=== PATIENT | male | born 1955 | race Caucasian/White ===

== ENCOUNTER 2020-06-09 20:00 | Inpatient (IN) | payer BC, OTHER ==
[~2020-06-09] VITALS: Ht 160 cm; Wt 77.8 kg
--- NOTE | 2020-06-09 20:15 | NUR ---
PT BIB EMS FROM [facility]. PT WAS DIAGNOSED WITH COVID AND OVER THE PAST 3 DAYS WAS GETTING DECADRON 10MG ONCE A DAY AT [facility]. TODAY PER EMS "THEY CALLED 911 BECAUSE HE WAS "DECLINING"" WHEN EMS ARRIVED HE WAS ON 6 LITERS SIMPLE MASK AND HIS 02 SAT WAS 80%. EMS PLACED HIM ON BIPAP AT 80%FIO2 AND 5 PEEP. PT ARRIVED TO ER AND IS BEING PLACED ON OPTIFLOW. EKG COMPLETE. PT CONNECTED TO MONITORING EQUIPMENT. LAW ENFORCEMENT IS BEDSIDE. WILL CONTINUE TO MONITOR
[2020-06-09 20:37] LABS: BASOPHILS % (AUTO) 0 % (0-1); EOSINOPHILS % (AUTO) 0 % (1-7); LYMPHOCYTES % (AUTO) 1 % (22-44); MEAN CORPUSCULAR HGB CONC 34.7 g/dL (33.2-36.2); MEAN PLATELET VOLUME 7.8 fL (7.4-10.4); MONOCYTES % (AUTO) 4 % (2-9); NEUTROPHILS % (AUTO) 95 % (42-75); PLATELET COUNT 253 x10^3/uL (130-400); RED BLOOD COUNT 5.22 x10^6/uL (4.38-5.82); RED CELL DISTRIBUTION WIDTH 13.6 % (9.4-14.8)
--- NOTE | 2020-06-09 20:38 | NUR ---
PT FAILED OPTIFLOW TRIAL. PT 02 SAT DROPPED TO 70s. PT PLACED BACK ON BIPAP AT 60% FLOW AT 12/8
[2020-06-09 20:40] LABS: MD NO
[2020-06-09 20:46] LABS: ALANINE AMINOTRANSFERASE 44 U/L (12-78); ALBUMIN 2.9 g/dL (3.4-5.0); ANION GAP 10 mmol/L (5-15); CALCIUM 8.3 mg/dL (8.5-10.1); CHLORIDE 102 mmol/L (98-107); CREATININE 0.86 mg/dL (0.7-1.3)
[2020-06-09 20:53] LABS: ALKALINE PHOSPHATASE 51 U/L (45-117); BILIRUBIN,TOTAL 0.9 mg/dL (0.2-1.0); TOTAL PROTEIN 7.2 g/dL (6.4-8.2)
[2020-06-09 20:54] LABS: D-DIMER (DIC) 1.07 ug/mlFEU (0.00-0.52); PROTIME 11.1 Seconds (9.6-11.5)
[2020-06-09] MEDS ORDERED: CEFTRIAXONE PMX 1GM/50ML 50 ML ONE (21:16)
[2020-06-09] MEDS ORDERED: CEFTRIAXONE PMX 1GM/50ML 50 ML IVPB ONE (21:30)
[2020-06-09] MEDS ORDERED: AZITHROMYCIN 500 MG in SODIUM CHLORIDE 0.9% 250 ML IVPB ONE (21:30)
--- NOTE | 2020-06-09 22:12 | NUR ---
PT RESTING IN GURNEY. WATCHING TV. TOELRATING BIPAP WELL.
[2020-06-09] MEDS: CEFTRIAXONE PMX 1GM/50ML 50 ML IV SCH (22:14)
[2020-06-09] MEDS: AZITHROMYCIN 500 MG in SODIUM CHLORIDE 0.9% 250 ML IV SCH (22:14)
[2020-06-09] MEDS ORDERED: PROMETHAZINE 25 MG/ML, 1ML IM PRN (22:30)
[2020-06-09] MEDS ORDERED: morphine SULFATE 10 MG/ML, 1ML IVPush PRN (22:30)
[2020-06-09] MEDS ORDERED: LORazepam 2 MG/ML, 1ML IVPush ONE (22:30)
[2020-06-09] MEDS ORDERED: THIAMINE 100MG TABLET ONE (22:32)
[2020-06-09] MEDS ORDERED: ENOXAPARIN 60 MG/0.6 ML ONE (22:32)
[2020-06-09] MEDS ORDERED: MELATONIN 5 MG TABLET ONE (22:32)
[2020-06-09] MEDS ORDERED: LORazepam 2 MG/ML, 1ML ONE (22:33)
[2020-06-09] MEDS: THIAMINE 100MG TABLET PO SCH (22:41)
[2020-06-09] MEDS: MELATONIN 5 MG TABLET PO SCH (22:41)
--- NOTE | 2020-06-09 22:42 | NUR ---
PT MEDICATED PER MAR
[2020-06-09] MEDS ORDERED: ENOXAPARIN 60 MG/0.6 ML SQ SCH (23:30)
[2020-06-10] MEDS: INSULIN GLARGINE 100 UNITS/ML, PEN SQ-INSULIN SCH ×3 (00:52→20:20)
[2020-06-10 04:25] LABS: BASOPHILS % (AUTO) 0 % (0-1); EOSINOPHILS % (AUTO) 0 % (1-7); LYMPHOCYTES % (AUTO) 2 % (22-44); MEAN CORPUSCULAR HGB CONC 36.3 g/dL (33.2-36.2); MEAN PLATELET VOLUME 7.8 fL (7.4-10.4); MONOCYTES % (AUTO) 5 % (2-9); NEUTROPHILS % (AUTO) 93 % (42-75); PLATELET COUNT 219 x10^3/uL (130-400); RED BLOOD COUNT 4.75 x10^6/uL (4.38-5.82); RED CELL DISTRIBUTION WIDTH 13.3 % (9.4-14.8)
[2020-06-10 04:36] LABS: MD NO
[2020-06-10 04:38] LABS: CHLORIDE 104 mmol/L (98-107)
[2020-06-10 05:03] LABS: ANION GAP 8 mmol/L (5-15); CREATININE 0.78 mg/dL (0.7-1.3)
[2020-06-10] MEDS ORDERED: PANTOPRAZOLE 40MG TABLET PO SCH (07:30)
[2020-06-10] MEDS: INSULIN LISPRO 100 UNITS/ML, PEN SQ-INSULIN SCH ×4 (08:13→20:20)
[2020-06-10] MEDS: CHOLECALCIFEROL 5,000u TAB PO SCH (08:14)
[2020-06-10] MEDS: ZINC SULFATE 220 MG CAPSULE PO SCH (08:14)
[2020-06-10] MEDS: DEXAMETHASONE 4 MG/ML, 1ML IVPush SCH (08:15)
[2020-06-10] MEDS: THIAMINE 100MG TABLET PO SCH (08:38)
[2020-06-10] MEDS: ASCORBIC ACID 500 MG TABLET PO SCH ×2 (08:38→17:24)
[2020-06-10] MEDS ORDERED: FUROSEMIDE 40 MG/4 ML IV ONE (09:30)
[2020-06-10] MEDS: ENOXAPARIN 80 MG/0.8 ML SQ SCH ×2 (11:15→23:31)
[2020-06-10] MEDS ORDERED: REMDESIVIR 200 MG in SODIUM CHLORIDE 0.9% 250 ML IVPB ONE (12:00)
[2020-06-10] MEDS ORDERED: PROPOFOL 100 ML IV ONE (12:26)
[2020-06-10] MEDS ORDERED: MIDAZOLAM 1 MG/ML, 5ML ONE (12:32)
[2020-06-10] MEDS ORDERED: FENTANYL PF 100 MCG/2ML ONE (13:04)
[2020-06-10] MEDS ORDERED: VECURONIUM 10 MG ONE (13:10)
[2020-06-10] MEDS ORDERED: LIDOCAINE-MPF 1%, 2ML ENDO PRN (14:00)
[2020-06-10] MEDS ORDERED: PHARMACY MAY ADJ FOR RENAL FX MC SCH (14:00)
[2020-06-10] MEDS: FENTANYL PF 1,000 MCG in SODIUM CHLORIDE 0.9% 80 ML IV PRN (14:27)
[2020-06-10] MEDS ORDERED: VECURONIUM 10 MG IVPush ONE ×2 (15:30→17:00)
[2020-06-10] MEDS: LABETALOL 5MG/ML, 20ML IVPush PRN (17:04)
[2020-06-10] MEDS: PROPOFOL 100 ML IV PRN ×2 (18:05→22:54)
[2020-06-10] MEDS: VECURONIUM 50 MG in SODIUM CHLORIDE 0.9% 50 ML IV PRN (18:30)
[2020-06-10] MEDS ORDERED: MIDAZOLAM 1 MG/ML, 5ML IVPush ONE (20:00)
[2020-06-10] MEDS: MELATONIN 5 MG TABLET PO SCH (20:19)
[2020-06-10] MEDS: CEFTRIAXONE PMX 1GM/50ML 50 ML IV SCH (22:27)
[2020-06-11] MEDS: AZITHROMYCIN 500 MG in SODIUM CHLORIDE 0.9% 250 ML IV SCH ×2 (00:02→19:48)
[2020-06-11] MEDS: PROPOFOL 100 ML IV PRN ×5 (02:07→18:15)
[2020-06-11] MEDS: VECURONIUM 50 MG in SODIUM CHLORIDE 0.9% 50 ML IV PRN (02:11)
[2020-06-11 04:29] LABS: BASOPHILS % (AUTO) 0 % (0-1); EOSINOPHILS % (AUTO) 0 % (1-7); LYMPHOCYTES % (AUTO) 3 % (22-44); MEAN CORPUSCULAR HGB CONC 35.1 g/dL (33.2-36.2); MEAN PLATELET VOLUME 7.7 fL (7.4-10.4); MONOCYTES % (AUTO) 5 % (2-9); NEUTROPHILS % (AUTO) 93 % (42-75); PLATELET COUNT 255 x10^3/uL (130-400); RED BLOOD COUNT 4.52 x10^6/uL (4.38-5.82); RED CELL DISTRIBUTION WIDTH 13.3 % (9.4-14.8)
[2020-06-11 04:31] LABS: MD NO
[2020-06-11 04:35] LABS: ALANINE AMINOTRANSFERASE 36 U/L (12-78); ALBUMIN 2.3 g/dL (3.4-5.0); ANION GAP 3 mmol/L (5-15); CALCIUM 7.6 mg/dL (8.5-10.1); CHLORIDE 107 mmol/L (98-107); CREATININE 0.79 mg/dL (0.7-1.3)
[2020-06-11 04:37] LABS: ALKALINE PHOSPHATASE 46 U/L (45-117); BILIRUBIN,TOTAL 0.4 mg/dL (0.2-1.0); TOTAL PROTEIN 6.3 g/dL (6.4-8.2)
[2020-06-11] MEDS ORDERED: PANTOPRAZOLE 40MG TABLET PO SCH (06:00)
[2020-06-11] MEDS: INSULIN LISPRO 100 UNITS/ML, PEN SQ-INSULIN SCH ×4 (06:39→19:50)
[2020-06-11] MEDS: ZINC SULFATE 220 MG CAPSULE PO SCH (08:30)
[2020-06-11] MEDS: CHOLECALCIFEROL 5,000u TAB PO SCH (08:30)
[2020-06-11] MEDS: PANTOPRAZOLE 40 MG IV IVPush SCH (08:30)
[2020-06-11] MEDS: THIAMINE 100MG TABLET PO SCH (08:30)
[2020-06-11] MEDS: ASCORBIC ACID 500 MG TABLET PO SCH ×2 (08:30→18:00)
[2020-06-11] MEDS: DEXAMETHASONE 4 MG/ML, 1ML IVPush SCH (08:30)
[2020-06-11] MEDS: INSULIN GLARGINE 100 UNITS/ML, PEN SQ-INSULIN SCH ×2 (08:32→19:51)
[2020-06-11] MEDS: FENTANYL PF 1,000 MCG in SODIUM CHLORIDE 0.9% 80 ML IV PRN (11:16)
[2020-06-11] MEDS: REMDESIVIR 100 MG in SODIUM CHLORIDE 0.9% 250 ML IVPB SCH (11:34)
[2020-06-11] MEDS: ENOXAPARIN 80 MG/0.8 ML SQ SCH ×2 (12:11→21:52)
[2020-06-11] MEDS ORDERED: FUROSEMIDE 40 MG/4 ML IV ONE (13:30)
[2020-06-11] MEDS: MELATONIN 5 MG TABLET PO SCH (19:46)
[2020-06-11] MEDS: CEFTRIAXONE PMX 1GM/50ML 50 ML IV SCH (19:47)
[2020-06-12] MEDS: PROPOFOL 100 ML IV PRN ×6 (00:12→21:03)
[2020-06-12 04:34] LABS: BASOPHILS % (AUTO) 0 % (0-1); EOSINOPHILS % (AUTO) 0 % (1-7); LYMPHOCYTES % (AUTO) 7 % (22-44); MEAN CORPUSCULAR HEMOGLOBIN 30.1 pg (27.5-34.5); MEAN PLATELET VOLUME 7.5 fL (7.4-10.4); MONOCYTES % (AUTO) 7 % (2-9); NEUTROPHILS % (AUTO) 86 % (42-75); PLATELET COUNT 266 x10^3/uL (130-400); RED BLOOD COUNT 4.42 x10^6/uL (4.38-5.82); RED CELL DISTRIBUTION WIDTH 13.3 % (9.4-14.8)
[2020-06-12 04:43] LABS: MD NO
[2020-06-12 04:47] LABS: ALANINE AMINOTRANSFERASE 31 U/L (12-78); ALBUMIN 2.2 g/dL (3.4-5.0); ANION GAP 3 mmol/L (5-15); CALCIUM 7.7 mg/dL (8.5-10.1); CHLORIDE 112 mmol/L (98-107); CREATININE 0.66 mg/dL (0.7-1.3)
[2020-06-12 04:49] LABS: ALKALINE PHOSPHATASE 43 U/L (45-117); BILIRUBIN,TOTAL 0.3 mg/dL (0.2-1.0); TOTAL PROTEIN 6.2 g/dL (6.4-8.2)
[2020-06-12] MEDS: INSULIN LISPRO 100 UNITS/ML, PEN SQ-INSULIN SCH ×4 (06:39→20:49)
[2020-06-12] MEDS: FUROSEMIDE 40 MG/4 ML IV SCH (08:17)
[2020-06-12] MEDS: DEXAMETHASONE 4 MG/ML, 1ML IVPush SCH (08:17)
[2020-06-12] MEDS: THIAMINE 100MG TABLET PO SCH (08:17)
[2020-06-12] MEDS: CHOLECALCIFEROL 5,000u TAB PO SCH (08:17)
[2020-06-12] MEDS: PANTOPRAZOLE 40 MG IV IVPush SCH (08:17)
[2020-06-12] MEDS: ASCORBIC ACID 500 MG TABLET PO SCH ×2 (08:17→15:45)
[2020-06-12] MEDS: ZINC SULFATE 220 MG CAPSULE PO SCH (08:18)
[2020-06-12] MEDS: FENTANYL PF 1,000 MCG in SODIUM CHLORIDE 0.9% 80 ML IV PRN (08:18)
[2020-06-12] MEDS: INSULIN GLARGINE 100 UNITS/ML, PEN SQ-INSULIN SCH ×2 (08:19→20:49)
[2020-06-12] MEDS: ENOXAPARIN 80 MG/0.8 ML SQ SCH ×2 (11:10→22:24)
[2020-06-12] MEDS: REMDESIVIR 100 MG in SODIUM CHLORIDE 0.9% 250 ML IVPB SCH (11:20)
[2020-06-12] MEDS ORDERED: VECURONIUM 10 MG IVPush ONE (15:30)
[2020-06-12] MEDS: VECURONIUM 50 MG in SODIUM CHLORIDE 0.9% 50 ML IV PRN (16:24)
[2020-06-12] MEDS ORDERED: FENTANYL PF 100 MCG/2ML ONE (17:12)
[2020-06-12] MEDS ORDERED: FENTANYL PF 100 MCG/2ML IVPush ONE (17:30)
[2020-06-12] MEDS: MIDAZOLAM HCL 50 MG in SODIUM CHLORIDE 0.9% 40 ML IV PRN (18:43)
[2020-06-12] MEDS: FENTANYL PF 2,500 MCG in SODIUM CHLORIDE 0.9% 200 ML IV PRN (18:51)
[2020-06-12] MEDS: MELATONIN 5 MG TABLET PO SCH (20:49)
[2020-06-12] MEDS: CEFTRIAXONE PMX 1GM/50ML 50 ML IV SCH (20:53)
[2020-06-12] MEDS: AZITHROMYCIN 500 MG in SODIUM CHLORIDE 0.9% 250 ML IV SCH (22:24)
[2020-06-13] MEDS: VECURONIUM 50 MG in SODIUM CHLORIDE 0.9% 50 ML IV PRN ×2 (00:22→21:53)
[2020-06-13] MEDS: MIDAZOLAM HCL 50 MG in SODIUM CHLORIDE 0.9% 40 ML IV PRN ×2 (01:23→18:46)
[2020-06-13] MEDS: PROPOFOL 100 ML IV PRN ×5 (02:30→23:08)
[2020-06-13 04:07] LABS: ALANINE AMINOTRANSFERASE 145 U/L (12-78); ALBUMIN 2.2 g/dL (3.4-5.0); ANION GAP 0 mmol/L (5-15); CALCIUM 7.6 mg/dL (8.5-10.1); CHLORIDE 111 mmol/L (98-107); CREATININE 0.52 mg/dL (0.7-1.3)
[2020-06-13 04:09] LABS: ALKALINE PHOSPHATASE 163 U/L (45-117); BILIRUBIN,TOTAL 0.4 mg/dL (0.2-1.0); TRIGLYCERIDES 131 mg/dL (50-200)
[2020-06-13 04:11] LABS: BASOPHILS % (AUTO) 0 % (0-1); EOSINOPHILS % (AUTO) 0 % (1-7); LYMPHOCYTES % (AUTO) 10 % (22-44); MEAN CORPUSCULAR HEMOGLOBIN 30.1 pg (27.5-34.5); MEAN CORPUSCULAR HGB CONC 34.6 g/dL (33.2-36.2); MEAN PLATELET VOLUME 7.4 fL (7.4-10.4); MONOCYTES % (AUTO) 7 % (2-9); NEUTROPHILS % (AUTO) 83 % (42-75); PLATELET COUNT 291 x10^3/uL (130-400); RED BLOOD COUNT 4.54 x10^6/uL (4.38-5.82); RED CELL DISTRIBUTION WIDTH 13.1 % (9.4-14.8)
[2020-06-13 04:14] LABS: MD NO
[2020-06-13] MEDS: INSULIN LISPRO 100 UNITS/ML, PEN SQ-INSULIN SCH ×4 (07:16→21:18)
[2020-06-13] MEDS: FUROSEMIDE 40 MG/4 ML IV SCH (07:17)
[2020-06-13] MEDS: PANTOPRAZOLE 40 MG IV IVPush SCH (07:18)
[2020-06-13] MEDS: DEXAMETHASONE 4 MG/ML, 1ML IVPush SCH (07:19)
[2020-06-13] MEDS: ZINC SULFATE 220 MG CAPSULE PO SCH (07:20)
[2020-06-13] MEDS: ASCORBIC ACID 500 MG TABLET PO SCH ×2 (07:20→16:28)
[2020-06-13] MEDS: THIAMINE 100MG TABLET PO SCH (07:20)
[2020-06-13] MEDS: CHOLECALCIFEROL 5,000u TAB PO SCH (07:21)
[2020-06-13] MEDS: INSULIN GLARGINE 100 UNITS/ML, PEN SQ-INSULIN SCH ×2 (07:31→21:43)
[2020-06-13] MEDS: ENOXAPARIN 80 MG/0.8 ML SQ SCH ×2 (10:54→23:07)
[2020-06-13] MEDS: REMDESIVIR 100 MG in SODIUM CHLORIDE 0.9% 250 ML IVPB SCH (11:49)
[2020-06-13] MEDS ORDERED: VECURONIUM 10 MG ONE (14:55)
[2020-06-13] MEDS ORDERED: VECURONIUM 10 MG IVPush ONE (16:30)
[2020-06-13] MEDS: MELATONIN 5 MG TABLET PO SCH (20:14)
[2020-06-13] MEDS: FENTANYL PF 2,500 MCG in SODIUM CHLORIDE 0.9% 200 ML IV PRN (21:52)
[2020-06-13] MEDS: CEFTRIAXONE PMX 1GM/50ML 50 ML IV SCH (22:21)
[2020-06-13] MEDS ORDERED: AZITHROMYCIN 500 MG in SODIUM CHLORIDE 0.9% 250 ML IV SCH (22:30)
[2020-06-14] MEDS: INSULIN LISPRO 100 UNITS/ML, PEN SQ-INSULIN SCH ×4 (03:28→20:52)
[2020-06-14] MEDS: PROPOFOL 100 ML IV PRN ×5 (03:30→23:02)
[2020-06-14 04:02] LABS: BASOPHILS % (AUTO) 0 % (0-1); EOSINOPHILS % (AUTO) 1 % (1-7); LYMPHOCYTES % (AUTO) 8 % (22-44); MEAN CORPUSCULAR HEMOGLOBIN 30.3 pg (27.5-34.5); MEAN CORPUSCULAR HGB CONC 34.6 g/dL (33.2-36.2); MEAN PLATELET VOLUME 7.6 fL (7.4-10.4); MONOCYTES % (AUTO) 6 % (2-9); NEUTROPHILS % (AUTO) 85 % (42-75); PLATELET COUNT 302 x10^3/uL (130-400); RED BLOOD COUNT 4.72 x10^6/uL (4.38-5.82); RED CELL DISTRIBUTION WIDTH 13.2 % (9.4-14.8)
[2020-06-14 04:08] LABS: MD NO
[2020-06-14 04:13] LABS: ALBUMIN 2.2 g/dL (3.4-5.0); CALCIUM 7.9 mg/dL (8.5-10.1); CREATININE 0.44 mg/dL (0.7-1.3)
[2020-06-14 04:19] LABS: ALANINE AMINOTRANSFERASE 191 U/L (12-78); ALKALINE PHOSPHATASE 196 U/L (45-117); BILIRUBIN,TOTAL 1.1 mg/dL (0.2-1.0); TOTAL PROTEIN 6.4 g/dL (6.4-8.2)
[2020-06-14 04:27] LABS: CHLORIDE 110 mmol/L (98-107)
[2020-06-14 04:28] LABS: ANION GAP 3 mmol/L (5-15)
[2020-06-14] MEDS: MIDAZOLAM HCL 50 MG in SODIUM CHLORIDE 0.9% 40 ML IV PRN ×2 (07:54→23:31)
[2020-06-14] MEDS: DEXAMETHASONE 4 MG/ML, 1ML IVPush SCH (07:58)
[2020-06-14] MEDS: PANTOPRAZOLE 40 MG IV IVPush SCH (07:58)
[2020-06-14] MEDS: FUROSEMIDE 40 MG/4 ML IV SCH (07:59)
[2020-06-14] MEDS: ENOXAPARIN 80 MG/0.8 ML SQ SCH ×2 (11:00→22:04)
[2020-06-14] MEDS: INSULIN GLARGINE 100 UNITS/ML, PEN SQ-INSULIN SCH ×2 (11:33→20:52)
[2020-06-14] MEDS: THIAMINE 100MG TABLET PO SCH (12:00)
[2020-06-14] MEDS ORDERED: THIAMINE 50MG TABLET ONE (12:06)
[2020-06-14] MEDS: CHOLECALCIFEROL 5,000u TAB PO SCH (12:09)
[2020-06-14] MEDS: ZINC SULFATE 220 MG CAPSULE PO SCH (12:09)
[2020-06-14] MEDS: ASCORBIC ACID 500 MG TABLET PO SCH ×2 (12:23→15:56)
[2020-06-14] MEDS: REMDESIVIR 100 MG in SODIUM CHLORIDE 0.9% 250 ML IVPB SCH (12:30)
[2020-06-14] MEDS: FENTANYL PF 2,500 MCG in SODIUM CHLORIDE 0.9% 200 ML IV PRN (13:35)
[2020-06-14] MEDS: MELATONIN 5 MG TABLET PO SCH (20:50)
[2020-06-14] MEDS: CEFTRIAXONE PMX 1GM/50ML 50 ML IV SCH (22:04)
[2020-06-15] MEDS: ACETAMINOPHEN 325 MG TABLET PO PRN (02:38)
[2020-06-15] MEDS: INSULIN LISPRO 100 UNITS/ML, PEN SQ-INSULIN SCH ×4 (02:43→20:13)
[2020-06-15 03:25] LABS: ALANINE AMINOTRANSFERASE 176 U/L (12-78); ANION GAP 1 mmol/L (5-15); BILIRUBIN, DIRECT 0.2 mg/dL (0.1-0.2); CALCIUM 7.9 mg/dL (8.5-10.1); CHLORIDE 107 mmol/L (98-107)
[2020-06-15 03:27] LABS: ALKALINE PHOSPHATASE 202 U/L (45-117); BILIRUBIN,INDIRECT 0.4 mg/dL (0.0-2.0); BILIRUBIN,TOTAL 0.6 mg/dL (0.2-1.0); CREATININE 0.56 mg/dL (0.7-1.3); TOTAL PROTEIN 6.4 g/dL (6.4-8.2)
[2020-06-15 03:36] LABS: MEAN CORPUSCULAR HEMOGLOBIN 29.7 pg (27.5-34.5); MEAN CORPUSCULAR HGB CONC 33.8 g/dL (33.2-36.2); MEAN PLATELET VOLUME 8.2 fL (7.4-10.4); PLATELET COUNT 329 x10^3/uL (130-400); RED BLOOD COUNT 4.92 x10^6/uL (4.38-5.82); RED CELL DISTRIBUTION WIDTH 13.2 % (9.4-14.8)
[2020-06-15 04:18] LABS: MD YES
[2020-06-15 04:19] LABS: <PLATELET ESTIMATE> ADEQUATE; ANISOCYTOSIS 1+; BAND#(MANUAL) 0.15 x10^3/uL; BANDS%(MANUAL) 2 % (0-7); LYMPH#(MANUAL) 0.23 x10^3/uL (1-3.4); LYMPHS% (MANUAL) 3 % (22-44); METAMYELOCYTES# (MANUAL) 0.08 x10^3/uL (0-0); METAMYELOCYTES% (MANUAL) 1 % (0-1); MONOS% (MANUAL) 4 % (2-9); SEG#(MANUAL) 6.84 x10^3/uL (1.8-6.8); SEGS% (MANUAL) 90 % (42-75)
[2020-06-15 04:20] LABS: LARGE PLATELETS 1+
[2020-06-15] MEDS: PROPOFOL 100 ML IV PRN ×3 (04:56→22:22)
[2020-06-15 05:07] LABS: D-DIMER 0.94 ug/mlFEU (0.00-0.52)
[2020-06-15] MEDS: INSULIN GLARGINE 100 UNITS/ML, PEN SQ-INSULIN SCH ×2 (09:07→20:12)
[2020-06-15] MEDS: ENOXAPARIN 80 MG/0.8 ML SQ SCH ×2 (10:00→20:11)
[2020-06-15] MEDS: THIAMINE 100MG TABLET PO SCH (10:33)
[2020-06-15] MEDS: PANTOPRAZOLE 40 MG IV IVPush SCH (10:33)
[2020-06-15] MEDS: ASCORBIC ACID 500 MG TABLET PO SCH ×2 (10:33→16:45)
[2020-06-15] MEDS: FUROSEMIDE 40 MG/4 ML IV SCH (10:33)
[2020-06-15] MEDS: DEXAMETHASONE 4 MG/ML, 1ML IVPush SCH (10:33)
[2020-06-15] MEDS: ZINC SULFATE 220 MG CAPSULE PO SCH (10:33)
[2020-06-15] MEDS: CHOLECALCIFEROL 5,000u TAB PO SCH (10:33)
[2020-06-15] MEDS: FENTANYL PF 2,500 MCG in SODIUM CHLORIDE 0.9% 200 ML IV PRN (17:08)
[2020-06-15 19:25] VITALS: BP 139/75
[2020-06-15] MEDS: MELATONIN 5 MG TABLET PO SCH (20:11)
[2020-06-15] MEDS: CEFTRIAXONE PMX 1GM/50ML 50 ML IV SCH (20:13)
[2020-06-16] MEDS ORDERED: LORazepam 2 MG/ML, 1ML ONE (00:55)
[2020-06-16] MEDS ORDERED: LORazepam 2 MG/ML, 1ML IVPush ONE (01:00)
[2020-06-16] MEDS: ACETAMINOPHEN 325 MG TABLET PO PRN (01:10)
[2020-06-16] MEDS: PROPOFOL 100 ML IV PRN ×4 (02:19→22:56)
[2020-06-16] MEDS: INSULIN LISPRO 100 UNITS/ML, PEN SQ-INSULIN SCH ×5 (03:00→20:37)
[2020-06-16 04:52] LABS: MEAN CORPUSCULAR HEMOGLOBIN 30.4 pg (27.5-34.5); MEAN CORPUSCULAR HGB CONC 34.4 g/dL (33.2-36.2); MEAN PLATELET VOLUME 7.7 fL (7.4-10.4); PLATELET COUNT 276 x10^3/uL (130-400); RED BLOOD COUNT 4.43 x10^6/uL (4.38-5.82); RED CELL DISTRIBUTION WIDTH 13.5 % (9.4-14.8)
[2020-06-16 05:04] LABS: ANION GAP 5 mmol/L (5-15); CALCIUM 8.1 mg/dL (8.5-10.1); CHLORIDE 107 mmol/L (98-107); CREATININE 0.72 mg/dL (0.7-1.3); TRIGLYCERIDES 190 mg/dL (50-200)
[2020-06-16 06:00] LABS: MD YES
[2020-06-16 06:02] LABS: BAND#(MANUAL) 0.08 x10^3/uL; BANDS%(MANUAL) 1 % (0-7); LYMPH#(MANUAL) 0.32 x10^3/uL (1-3.4); LYMPHS% (MANUAL) 4 % (22-44); METAMYELOCYTES# (MANUAL) 0.16 x10^3/uL (0-0); METAMYELOCYTES% (MANUAL) 2 % (0-1); MONOS#(MANUAL) 0.16 x10^3/uL (0.3-2.7); MONOS% (MANUAL) 2 % (2-9); SEG#(MANUAL) 7.28 x10^3/uL (1.8-6.8); SEGS% (MANUAL) 91 % (42-75)
[2020-06-16 06:05] LABS: <PLATELET ESTIMATE> ADEQUATE; <PLT MORPHOLOGY> NORMAL PLT MORPH; <RBC MORPHOLOGY> NORMAL
[2020-06-16 07:03] LABS: ALBUMIN 1.8 g/dL (3.4-5.0); BILIRUBIN, DIRECT 0.2 mg/dL (0.1-0.2)
[2020-06-16 07:05] LABS: BILIRUBIN,INDIRECT 0.2 mg/dL (0.0-2.0); BILIRUBIN,TOTAL 0.4 mg/dL (0.2-1.0); TOTAL PROTEIN 6.4 g/dL (6.4-8.2)
[2020-06-16] MEDS: ENOXAPARIN 80 MG/0.8 ML SQ SCH ×2 (10:00→20:52)
[2020-06-16] MEDS: PANTOPRAZOLE 40 MG IV IVPush SCH (10:30)
[2020-06-16] MEDS: ASCORBIC ACID 500 MG TABLET PO SCH ×2 (10:31→16:47)
[2020-06-16] MEDS: FUROSEMIDE 40 MG/4 ML IV SCH (10:31)
[2020-06-16] MEDS: ZINC SULFATE 220 MG CAPSULE PO SCH (10:31)
[2020-06-16] MEDS: THIAMINE 100MG TABLET PO SCH (10:31)
[2020-06-16] MEDS: DEXAMETHASONE 4 MG/ML, 1ML IVPush SCH (10:31)
[2020-06-16] MEDS: CHOLECALCIFEROL 5,000u TAB PO SCH (10:31)
[2020-06-16] MEDS: INSULIN GLARGINE 100 UNITS/ML, PEN SQ-INSULIN SCH ×2 (10:49→20:38)
[2020-06-16] MEDS ORDERED: LACTULOSE 20 GM/30 ML UDC PO PRN ×2 (11:00)
[2020-06-16] MEDS: MELATONIN 5 MG TABLET PO SCH (20:40)
[2020-06-16] MEDS: DOCUSATE 50 MG/5 ML, 10ML UDC PO SCH (20:40)
[2020-06-16] MEDS: SENNA 176 MG/5 ML ORAL SOL PO SCH (20:41)
[2020-06-16] MEDS ORDERED: BISACODYL 10 MG SUPP PR PRN (21:00)
[2020-06-17] MEDS: INSULIN LISPRO 100 UNITS/ML, PEN SQ-INSULIN SCH ×4 (02:52→21:17)
[2020-06-17] MEDS: PROPOFOL 100 ML IV PRN ×5 (03:13→23:01)
[2020-06-17 04:35] LABS: BASOPHILS % (AUTO) 0 % (0-1); EOSINOPHILS % (AUTO) 0 % (1-7); LYMPHOCYTES % (AUTO) 4 % (22-44); MEAN CORPUSCULAR HEMOGLOBIN 30.4 pg (27.5-34.5); MEAN CORPUSCULAR HGB CONC 34.2 g/dL (33.2-36.2); MEAN PLATELET VOLUME 8.3 fL (7.4-10.4); MONOCYTES % (AUTO) 4 % (2-9); NEUTROPHILS % (AUTO) 91 % (42-75); PLATELET COUNT 281 x10^3/uL (130-400); RED BLOOD COUNT 4.18 x10^6/uL (4.38-5.82); RED CELL DISTRIBUTION WIDTH 13.5 % (9.4-14.8)
[2020-06-17 04:39] LABS: ALBUMIN 1.7 g/dL (3.4-5.0)
[2020-06-17 04:44] LABS: ALANINE AMINOTRANSFERASE 65 U/L (12-78); ALKALINE PHOSPHATASE 112 U/L (45-117); BILIRUBIN, DIRECT 0.3 mg/dL (0.1-0.2); BILIRUBIN,INDIRECT 0.4 mg/dL (0.0-2.0); BILIRUBIN,TOTAL 0.7 mg/dL (0.2-1.0); CREATININE 0.58 mg/dL (0.7-1.3); TOTAL PROTEIN 6.4 g/dL (6.4-8.2)
[2020-06-17 04:53] LABS: ANION GAP 3 mmol/L (5-15); CHLORIDE 107 mmol/L (98-107)
[2020-06-17 05:48] LABS: MD SCAN
[2020-06-17] MEDS: ZINC SULFATE 220 MG CAPSULE PO SCH (08:26)
[2020-06-17] MEDS: ASCORBIC ACID 500 MG TABLET PO SCH ×2 (08:26→16:25)
[2020-06-17] MEDS: THIAMINE 100MG TABLET PO SCH (08:26)
[2020-06-17] MEDS: CHOLECALCIFEROL 5,000u TAB PO SCH (08:26)
[2020-06-17] MEDS: FUROSEMIDE 40 MG/4 ML IV SCH (08:28)
[2020-06-17] MEDS: PANTOPRAZOLE 40 MG IV IVPush SCH (08:28)
[2020-06-17] MEDS: DOCUSATE 50 MG/5 ML, 10ML UDC PO SCH (08:28)
[2020-06-17] MEDS: DEXAMETHASONE 4 MG/ML, 1ML IV SCH (08:29)
[2020-06-17] MEDS: INSULIN GLARGINE 100 UNITS/ML, PEN SQ-INSULIN SCH ×2 (08:45→21:17)
[2020-06-17] MEDS: ENOXAPARIN 80 MG/0.8 ML SQ SCH ×2 (08:46→21:14)
[2020-06-17] MEDS ORDERED: VECURONIUM 10 MG ONE (17:30)
[2020-06-17] MEDS: VECURONIUM 50 MG in SODIUM CHLORIDE 0.9% 50 ML IV PRN ×2 (17:56→17:58)
[2020-06-17] MEDS: FENTANYL PF 2,500 MCG in SODIUM CHLORIDE 0.9% 200 ML IV PRN (18:48)
[2020-06-17] MEDS: MELATONIN 5 MG TABLET PO SCH (21:13)
[2020-06-17] MEDS: SENNA 176 MG/5 ML ORAL SOL PO SCH (21:14)
[2020-06-17] MEDS: MIDAZOLAM HCL 50 MG in SODIUM CHLORIDE 0.9% 40 ML IV PRN (23:01)
[2020-06-18] MEDS: VECURONIUM 50 MG in SODIUM CHLORIDE 0.9% 50 ML IV PRN ×2 (00:06→06:26)
[2020-06-18] MEDS: PROPOFOL 100 ML IV PRN ×6 (02:52→23:07)
[2020-06-18] MEDS: INSULIN LISPRO 100 UNITS/ML, PEN SQ-INSULIN SCH ×4 (02:57→21:05)
[2020-06-18 04:58] LABS: BASOPHILS % (AUTO) 0 % (0-1); EOSINOPHILS % (AUTO) 1 % (1-7); LYMPHOCYTES % (AUTO) 4 % (22-44); MEAN CORPUSCULAR HEMOGLOBIN 30.2 pg (27.5-34.5); MONOCYTES % (AUTO) 4 % (2-9); NEUTROPHILS % (AUTO) 91 % (42-75); PLATELET COUNT 278 x10^3/uL (130-400); RED BLOOD COUNT 4.36 x10^6/uL (4.38-5.82); RED CELL DISTRIBUTION WIDTH 13.3 % (9.4-14.8)
[2020-06-18 05:06] LABS: ALBUMIN 1.7 g/dL (3.4-5.0); ANION GAP 3 mmol/L (5-15); CALCIUM 8.1 mg/dL (8.5-10.1); CHLORIDE 105 mmol/L (98-107)
[2020-06-18 05:10] LABS: ALANINE AMINOTRANSFERASE 52 U/L (12-78); ALKALINE PHOSPHATASE 143 U/L (45-117); BILIRUBIN, DIRECT 0.5 mg/dL (0.1-0.2); BILIRUBIN,INDIRECT 0.3 mg/dL (0.0-2.0); BILIRUBIN,TOTAL 0.8 mg/dL (0.2-1.0); CREATININE 0.49 mg/dL (0.7-1.3); TOTAL PROTEIN 6.6 g/dL (6.4-8.2)
[2020-06-18 05:18] LABS: MD NO
[2020-06-18] MEDS: MIDAZOLAM HCL 50 MG in SODIUM CHLORIDE 0.9% 40 ML IV PRN ×2 (06:43→18:32)
[2020-06-18] MEDS: ZINC SULFATE 220 MG CAPSULE PO SCH (09:00)
[2020-06-18] MEDS: CHOLECALCIFEROL 5,000u TAB PO SCH (09:22)
[2020-06-18] MEDS: ASCORBIC ACID 500 MG TABLET PO SCH ×2 (09:22→15:37)
[2020-06-18] MEDS: PANTOPRAZOLE 40 MG IV IVPush SCH (09:22)
[2020-06-18] MEDS: INSULIN GLARGINE 100 UNITS/ML, PEN SQ-INSULIN SCH ×2 (09:24→21:05)
[2020-06-18] MEDS: DEXAMETHASONE 4 MG/ML, 1ML IV SCH (09:24)
[2020-06-18] MEDS: ENOXAPARIN 80 MG/0.8 ML SQ SCH ×2 (09:25→21:29)
[2020-06-18] MEDS: DOCUSATE 50 MG/5 ML, 10ML UDC PO SCH (09:43)
[2020-06-18] MEDS: THIAMINE 100MG TABLET PO SCH (09:43)
[2020-06-18] MEDS: FENTANYL PF 2,500 MCG in SODIUM CHLORIDE 0.9% 200 ML IV PRN (11:37)
[2020-06-18] MEDS ORDERED: LINEZOLID 20MG/ML ORAL SUSP PO SCH (15:30)
[2020-06-18] MEDS ORDERED: VECURONIUM 10 MG ONE (15:32)
[2020-06-18] MEDS ORDERED: VANCOMYCIN PER PHARMACY MC PRN (16:00)
[2020-06-18] MEDS ORDERED: PHARMACOKINETIC MONITORING MC PRN (16:00)
[2020-06-18] MEDS ORDERED: VANCOMYCIN 1,700 MG in SODIUM CHLORIDE 0.9% 250 ML IV ONE (16:00)
[2020-06-18] MEDS ORDERED: VECURONIUM 10 MG IVPush ONE (17:30)
[2020-06-18] MEDS: MELATONIN 5 MG TABLET PO SCH (21:00)
[2020-06-19] MEDS: PROPOFOL 100 ML IV PRN ×5 (01:57→20:02)
[2020-06-19] MEDS: INSULIN LISPRO 100 UNITS/ML, PEN SQ-INSULIN SCH ×4 (03:00→20:08)
[2020-06-19] MEDS: VANCOMYCIN 1,400 MG in SODIUM CHLORIDE 0.9% 250 ML IV SCH ×2 (03:55→15:50)
[2020-06-19] MEDS: FENTANYL PF 2,500 MCG in SODIUM CHLORIDE 0.9% 200 ML IV PRN ×2 (04:03→18:26)
[2020-06-19] MEDS: MIDAZOLAM HCL 50 MG in SODIUM CHLORIDE 0.9% 40 ML IV PRN ×2 (04:03→15:53)
[2020-06-19] MEDS: VECURONIUM 50 MG in SODIUM CHLORIDE 0.9% 50 ML IV PRN (04:04)
[2020-06-19 04:54] LABS: ALBUMIN 1.7 g/dL (3.4-5.0); ANION GAP 3 mmol/L (5-15); CALCIUM 8.6 mg/dL (8.5-10.1); CHLORIDE 106 mmol/L (98-107)
[2020-06-19 04:58] LABS: ALANINE AMINOTRANSFERASE 45 U/L (12-78); ALKALINE PHOSPHATASE 137 U/L (45-117); BILIRUBIN, DIRECT 0.3 mg/dL (0.1-0.2); BILIRUBIN,INDIRECT 0.4 mg/dL (0.0-2.0); BILIRUBIN,TOTAL 0.7 mg/dL (0.2-1.0); CREATININE 0.44 mg/dL (0.7-1.3); TOTAL PROTEIN 6.8 g/dL (6.4-8.2); TRIGLYCERIDES 238 mg/dL (50-200)
[2020-06-19 05:09] LABS: BASOPHILS % (AUTO) 1 % (0-1); EOSINOPHILS % (AUTO) 1 % (1-7); LYMPHOCYTES % (AUTO) 5 % (22-44); MEAN CORPUSCULAR HEMOGLOBIN 30.1 pg (27.5-34.5); MEAN CORPUSCULAR HGB CONC 34.3 g/dL (33.2-36.2); MEAN PLATELET VOLUME 8.4 fL (7.4-10.4); MONOCYTES % (AUTO) 4 % (2-9); NEUTROPHILS % (AUTO) 89 % (42-75); PLATELET COUNT 254 x10^3/uL (130-400); RED BLOOD COUNT 4.61 x10^6/uL (4.38-5.82); RED CELL DISTRIBUTION WIDTH 13.4 % (9.4-14.8)
[2020-06-19 05:13] LABS: MD NO
[2020-06-19] MEDS: DOCUSATE 50 MG/5 ML, 10ML UDC PO SCH (11:33)
[2020-06-19] MEDS: ZINC SULFATE 220 MG CAPSULE PO SCH (11:33)
[2020-06-19] MEDS: PANTOPRAZOLE 40 MG IV IVPush SCH (11:33)
[2020-06-19] MEDS: DEXAMETHASONE 4 MG/ML, 1ML IV SCH (11:34)
[2020-06-19] MEDS: ASCORBIC ACID 500 MG TABLET PO SCH ×2 (11:34→15:53)
[2020-06-19] MEDS: CHOLECALCIFEROL 5,000u TAB PO SCH (11:35)
[2020-06-19] MEDS: INSULIN GLARGINE 100 UNITS/ML, PEN SQ-INSULIN SCH ×2 (11:38→20:08)
[2020-06-19] MEDS ORDERED: VECURONIUM 10 MG IVPush ONE (16:00)
[2020-06-19] MEDS: MELATONIN 5 MG TABLET PO SCH (20:06)
[2020-06-19] MEDS: ENOXAPARIN 80 MG/0.8 ML SQ SCH (20:07)
[2020-06-20] MEDS: PROPOFOL 100 ML IV PRN ×4 (01:39→16:47)
[2020-06-20] MEDS: MIDAZOLAM HCL 50 MG in SODIUM CHLORIDE 0.9% 40 ML IV PRN ×3 (02:23→21:38)
[2020-06-20] MEDS: VECURONIUM 50 MG in SODIUM CHLORIDE 0.9% 50 ML IV PRN ×2 (02:24→20:17)
[2020-06-20] MEDS: VANCOMYCIN 1,400 MG in SODIUM CHLORIDE 0.9% 250 ML IV SCH ×2 (03:14→15:27)
[2020-06-20] MEDS: FENTANYL PF 2,500 MCG in SODIUM CHLORIDE 0.9% 200 ML IV PRN ×3 (03:38→23:41)
[2020-06-20] MEDS: INSULIN LISPRO 100 UNITS/ML, PEN SQ-INSULIN SCH ×4 (03:39→20:28)
[2020-06-20 05:30] LABS: ALANINE AMINOTRANSFERASE 43 U/L (12-78); ALBUMIN 1.4 g/dL (3.4-5.0); ANION GAP 2 mmol/L (5-15); CALCIUM 7.9 mg/dL (8.5-10.1); CHLORIDE 107 mmol/L (98-107); CREATININE 0.45 mg/dL (0.7-1.3)
[2020-06-20 05:32] LABS: ALKALINE PHOSPHATASE 142 U/L (45-117); BILIRUBIN,TOTAL 0.7 mg/dL (0.2-1.0); TOTAL PROTEIN 6.1 g/dL (6.4-8.2)
[2020-06-20 05:39] LABS: BILIRUBIN, DIRECT 0.3 mg/dL (0.1-0.2); BILIRUBIN,INDIRECT 0.4 mg/dL (0.0-2.0)
[2020-06-20 06:11] LABS: BASOPHILS % (AUTO) 1 % (0-1); EOSINOPHILS % (AUTO) 0 % (1-7); LYMPHOCYTES % (AUTO) 4 % (22-44); MEAN CORPUSCULAR HEMOGLOBIN 30.7 pg (27.5-34.5); MEAN CORPUSCULAR HGB CONC 34.2 g/dL (33.2-36.2); MEAN PLATELET VOLUME 8.1 fL (7.4-10.4); MONOCYTES % (AUTO) 5 % (2-9); NEUTROPHILS % (AUTO) 90 % (42-75); PLATELET COUNT 219 x10^3/uL (130-400)
[2020-06-20 06:17] LABS: MD NO
[2020-06-20] MEDS: DEXAMETHASONE 4 MG/ML, 1ML IV SCH (07:43)
[2020-06-20] MEDS: DOCUSATE 50 MG/5 ML, 10ML UDC PO SCH (07:43)
[2020-06-20] MEDS: ENOXAPARIN 80 MG/0.8 ML SQ SCH (07:44)
[2020-06-20] MEDS: INSULIN GLARGINE 100 UNITS/ML, PEN SQ-INSULIN SCH ×2 (07:45→20:28)
[2020-06-20] MEDS: PANTOPRAZOLE 40 MG IV IVPush SCH (09:00)
[2020-06-20] MEDS ORDERED: VECURONIUM 10 MG IVPush ONE (15:00)
[2020-06-20] MEDS ORDERED: VECURONIUM 10 MG ONE (15:21)
[2020-06-20] MEDS: MELATONIN 5 MG TABLET PO SCH (20:29)
[2020-06-21] MEDS: VANCOMYCIN 1,600 MG in SODIUM CHLORIDE 0.9% 250 ML IV SCH ×2 (01:30→15:31)
[2020-06-21] MEDS: INSULIN LISPRO 100 UNITS/ML, PEN SQ-INSULIN SCH ×4 (02:14→20:42)
[2020-06-21] MEDS: MIDAZOLAM HCL 50 MG in SODIUM CHLORIDE 0.9% 40 ML IV PRN ×3 (02:15→15:31)
[2020-06-21] MEDS: VECURONIUM 50 MG in SODIUM CHLORIDE 0.9% 50 ML IV PRN (04:41)
[2020-06-21 04:49] LABS: BASOPHILS % (AUTO) 1 % (0-1); EOSINOPHILS % (AUTO) 0 % (1-7); LYMPHOCYTES % (AUTO) 4 % (22-44); MEAN CORPUSCULAR HGB CONC 33.5 g/dL (33.2-36.2); MEAN PLATELET VOLUME 8.2 fL (7.4-10.4); MONOCYTES % (AUTO) 5 % (2-9); NEUTROPHILS % (AUTO) 90 % (42-75); PLATELET COUNT 192 x10^3/uL (130-400); RED BLOOD COUNT 3.96 x10^6/uL (4.38-5.82); RED CELL DISTRIBUTION WIDTH 13.4 % (9.4-14.8)
[2020-06-21 04:55] LABS: ALANINE AMINOTRANSFERASE 30 U/L (12-78); ALBUMIN 1.3 g/dL (3.4-5.0); ANION GAP 0 mmol/L (5-15); BILIRUBIN, DIRECT 0.5 mg/dL (0.1-0.2); CALCIUM 7.9 mg/dL (8.5-10.1); CHLORIDE 106 mmol/L (98-107); CREATININE 0.47 mg/dL (0.7-1.3)
[2020-06-21 04:58] LABS: ALKALINE PHOSPHATASE 111 U/L (45-117); BILIRUBIN,INDIRECT 0.2 mg/dL (0.0-2.0); BILIRUBIN,TOTAL 0.7 mg/dL (0.2-1.0)
[2020-06-21 05:49] LABS: MD SCAN
[2020-06-21] MEDS: ARTIFICIAL TEARS 15 DROP/ML BOTTLE RIGHTEYE PRN ×5 (06:10→22:16)
[2020-06-21] MEDS: FENTANYL PF 2,500 MCG in SODIUM CHLORIDE 0.9% 200 ML IV PRN (06:11)
[2020-06-21] MEDS: ENOXAPARIN 80 MG/0.8 ML SQ SCH (08:04)
[2020-06-21] MEDS: PANTOPRAZOLE 40 MG IV IVPush SCH (08:04)
[2020-06-21] MEDS: DOCUSATE 50 MG/5 ML, 10ML UDC PO SCH (08:04)
[2020-06-21] MEDS: INSULIN GLARGINE 100 UNITS/ML, PEN SQ-INSULIN SCH ×2 (08:05→20:43)
[2020-06-21] MEDS: PROPOFOL 100 ML IV PRN (08:30)
[2020-06-21] MEDS: ACETAMINOPHEN 325 MG TABLET PO PRN (18:09)
[2020-06-21] MEDS: MELATONIN 5 MG TABLET PO SCH (20:44)
[2020-06-21] MEDS ORDERED: PROPOFOL 50 ML IV PRN (21:30)
[2020-06-22] MEDS: ARTIFICIAL TEARS 15 DROP/ML BOTTLE RIGHTEYE PRN ×3 (00:24→04:55)
[2020-06-22] MEDS: MIDAZOLAM HCL 50 MG in SODIUM CHLORIDE 0.9% 40 ML IV PRN ×2 (00:25→10:48)
[2020-06-22] MEDS: VANCOMYCIN 1,600 MG in SODIUM CHLORIDE 0.9% 250 ML IV SCH ×2 (01:47→14:00)
[2020-06-22] MEDS: INSULIN LISPRO 100 UNITS/ML, PEN SQ-INSULIN SCH ×4 (03:00→19:51)
[2020-06-22] MEDS: LABETALOL 5MG/ML, 20ML IVPush PRN (03:15)
[2020-06-22] MEDS: ACETAMINOPHEN 325 MG TABLET PO PRN ×3 (03:15→19:53)
[2020-06-22 04:46] LABS: BASOPHILS % (AUTO) 1 % (0-1); EOSINOPHILS % (AUTO) 1 % (1-7); LYMPHOCYTES % (AUTO) 4 % (22-44); MD NO; MEAN CORPUSCULAR HEMOGLOBIN 30.3 pg (27.5-34.5); MEAN CORPUSCULAR HGB CONC 34.2 g/dL (33.2-36.2); MONOCYTES % (AUTO) 6 % (2-9); NEUTROPHILS % (AUTO) 89 % (42-75); PLATELET COUNT 185 x10^3/uL (130-400); RED BLOOD COUNT 3.88 x10^6/uL (4.38-5.82); RED CELL DISTRIBUTION WIDTH 13.1 % (9.4-14.8)
[2020-06-22 04:52] LABS: ALANINE AMINOTRANSFERASE 27 U/L (12-78); ALBUMIN 1.4 g/dL (3.4-5.0); ANION GAP 2 mmol/L (5-15); BILIRUBIN, DIRECT 0.5 mg/dL (0.1-0.2); CALCIUM 7.8 mg/dL (8.5-10.1); CHLORIDE 106 mmol/L (98-107); CREATININE 0.49 mg/dL (0.7-1.3)
[2020-06-22 04:55] LABS: ALKALINE PHOSPHATASE 108 U/L (45-117); BILIRUBIN,INDIRECT 0.4 mg/dL (0.0-2.0); BILIRUBIN,TOTAL 0.9 mg/dL (0.2-1.0); TRIGLYCERIDES 229 mg/dL (50-200)
[2020-06-22] MEDS: FENTANYL PF 2,500 MCG in SODIUM CHLORIDE 0.9% 200 ML IV PRN ×2 (04:55→17:17)
[2020-06-22] MEDS ORDERED: POTASSIUM CHLORIDE 10% 40 MEQ/30 ML UDC PO ONE (08:00)
[2020-06-22] MEDS: DOCUSATE 50 MG/5 ML, 10ML UDC PO SCH (08:20)
[2020-06-22] MEDS: PANTOPRAZOLE 40 MG IV IVPush SCH (08:21)
[2020-06-22] MEDS: INSULIN GLARGINE 100 UNITS/ML, PEN SQ-INSULIN SCH ×2 (08:27→19:52)
[2020-06-22] MEDS: ENOXAPARIN 80 MG/0.8 ML SQ SCH (08:27)
[2020-06-22] MEDS ORDERED: PROPOFOL 50 ML IV PRN (09:30)
[2020-06-22] MEDS: TOBRAMYCIN/DEXAMETH OPHTH SUSP 2.5ML OP SCH ×3 (10:48→19:53)
--- NOTE | 2020-06-22 11:27 | NUR ---
TF goal: Vital AF: goal: 50 ml/hr with propofol, 55 ml/hr off propofol Addendum: 06/22/20 at [address] Amended: Links added.
[2020-06-22] MEDS: PROPOFOL 100 ML IV PRN ×2 (14:10→19:55)
[2020-06-22] MEDS ORDERED: AMIODARONE 150 MG in DEXTROSE 5% 100 ML IV ONE (18:35)
[2020-06-22] MEDS ORDERED: FILTER 0.22 MICRON FOR AMIODARONE IV PRN (19:00)
[2020-06-22] MEDS: AMIODARONE 450 MG in DEXTROSE 5% 241 ML IV PRN (19:46)
[2020-06-22] MEDS: MELATONIN 5 MG TABLET PO SCH (19:46)
[2020-06-22 20:00] LABS: ANION GAP 4 mmol/L (5-15); CALCIUM 7.8 mg/dL (8.5-10.1); CHLORIDE 108 mmol/L (98-107)
[2020-06-22 20:04] LABS: TROPONIN I < 0.015 ng/mL (0.000-0.045)
[2020-06-23] MEDS: PROPOFOL 100 ML IV PRN ×4 (00:35→18:24)
[2020-06-23] MEDS: VANCOMYCIN 1,600 MG in SODIUM CHLORIDE 0.9% 250 ML IV SCH ×2 (01:40→14:10)
[2020-06-23] MEDS: INSULIN LISPRO 100 UNITS/ML, PEN SQ-INSULIN SCH ×4 (02:48→20:08)
[2020-06-23 04:15] LABS: BASOPHILS % (AUTO) 1 % (0-1); EOSINOPHILS % (AUTO) 1 % (1-7); LYMPHOCYTES % (AUTO) 7 % (22-44); MEAN CORPUSCULAR HEMOGLOBIN 30.1 pg (27.5-34.5); MEAN CORPUSCULAR HGB CONC 33.9 g/dL (33.2-36.2); MONOCYTES % (AUTO) 6 % (2-9); NEUTROPHILS % (AUTO) 85 % (42-75); PLATELET COUNT 167 x10^3/uL (130-400); RED CELL DISTRIBUTION WIDTH 13.6 % (9.4-14.8)
[2020-06-23 04:16] LABS: MD NO
[2020-06-23 04:29] LABS: CHLORIDE 106 mmol/L (98-107)
[2020-06-23 04:35] LABS: ALANINE AMINOTRANSFERASE 21 U/L (12-78); ALBUMIN 1.2 g/dL (3.4-5.0); ALKALINE PHOSPHATASE 102 U/L (45-117); ANION GAP 1 mmol/L (5-15); BILIRUBIN, DIRECT 0.5 mg/dL (0.1-0.2); BILIRUBIN,INDIRECT 0.3 mg/dL (0.0-2.0); BILIRUBIN,TOTAL 0.8 mg/dL (0.2-1.0); CALCIUM 7.4 mg/dL (8.5-10.1); CREATININE 0.53 mg/dL (0.7-1.3); TOTAL PROTEIN 5.7 g/dL (6.4-8.2)
[2020-06-23] MEDS: TOBRAMYCIN/DEXAMETH OPHTH SUSP 2.5ML OP SCH ×4 (05:09→20:10)
[2020-06-23] MEDS: AMIODARONE 450 MG in DEXTROSE 5% 241 ML IV PRN ×2 (05:38→20:13)
[2020-06-23] MEDS: ACETAMINOPHEN 325 MG TABLET PO PRN ×3 (05:39→22:11)
[2020-06-23] MEDS: FENTANYL PF 2,500 MCG in SODIUM CHLORIDE 0.9% 200 ML IV PRN (06:11)
[2020-06-23] MEDS: PANTOPRAZOLE 40 MG IV IVPush SCH (09:45)
[2020-06-23] MEDS: DOCUSATE 50 MG/5 ML, 10ML UDC PO SCH (09:45)
[2020-06-23] MEDS: ENOXAPARIN 80 MG/0.8 ML SQ SCH (09:47)
[2020-06-23] MEDS: INSULIN GLARGINE 100 UNITS/ML, PEN SQ-INSULIN SCH ×2 (09:50→20:09)
[2020-06-23] MEDS ORDERED: FUROSEMIDE 40 MG/4 ML IV ONE (10:00)
[2020-06-23] MEDS: POTASSIUM CHLORIDE 20 MEQ PACKET PO SCH (16:13)
[2020-06-23] MEDS: FUROSEMIDE 40 MG/4 ML IV SCH (16:13)
[2020-06-23] MEDS ORDERED: FUROSEMIDE 40 MG TABLET PO SCH (17:00)
[2020-06-23] MEDS: VANCOMYCIN 1,200 MG in SODIUM CHLORIDE 0.9% 250 ML IV SCH (20:10)
[2020-06-24] MEDS: PROPOFOL 100 ML IV PRN ×4 (01:09→22:54)
[2020-06-24] MEDS: INSULIN LISPRO 100 UNITS/ML, PEN SQ-INSULIN SCH ×4 (02:12→20:19)
[2020-06-24] MEDS: FENTANYL PF 2,500 MCG in SODIUM CHLORIDE 0.9% 200 ML IV PRN ×2 (02:13→23:17)
[2020-06-24] MEDS: ACETAMINOPHEN 325 MG TABLET PO PRN ×2 (03:28→21:55)
[2020-06-24] MEDS: TOBRAMYCIN/DEXAMETH OPHTH SUSP 2.5ML OP SCH ×4 (03:30→22:48)
[2020-06-24 04:49] LABS: BASOPHILS % (AUTO) 1 % (0-1); EOSINOPHILS % (AUTO) 0 % (1-7); LYMPHOCYTES % (AUTO) 2 % (22-44); MEAN PLATELET VOLUME 8.2 fL (7.4-10.4); MONOCYTES % (AUTO) 5 % (2-9); NEUTROPHILS % (AUTO) 92 % (42-75); PLATELET COUNT 291 x10^3/uL (130-400); RED BLOOD COUNT 4.29 x10^6/uL (4.38-5.82); RED CELL DISTRIBUTION WIDTH 13.9 % (9.4-14.8)
[2020-06-24 05:03] LABS: CHLORIDE 102 mmol/L (98-107)
[2020-06-24 05:11] LABS: ANION GAP 4 mmol/L (5-15); CALCIUM 7.8 mg/dL (8.5-10.1); CREATININE 0.61 mg/dL (0.7-1.3)
[2020-06-24 05:12] LABS: ALANINE AMINOTRANSFERASE 20 U/L (12-78); ALBUMIN 1.4 g/dL (3.4-5.0); ALKALINE PHOSPHATASE 125 U/L (45-117); BILIRUBIN, DIRECT 0.5 mg/dL (0.1-0.2); BILIRUBIN,INDIRECT 0.3 mg/dL (0.0-2.0); BILIRUBIN,TOTAL 0.8 mg/dL (0.2-1.0); TOTAL PROTEIN 6.9 g/dL (6.4-8.2)
[2020-06-24 05:46] LABS: MD SCAN
[2020-06-24] MEDS: VANCOMYCIN 1,200 MG in SODIUM CHLORIDE 0.9% 250 ML IV SCH ×3 (06:12→21:55)
[2020-06-24] MEDS: PANTOPRAZOLE 40 MG IV IVPush SCH (10:21)
[2020-06-24] MEDS: INSULIN GLARGINE 100 UNITS/ML, PEN SQ-INSULIN SCH ×2 (10:21→20:19)
[2020-06-24] MEDS: DOCUSATE 50 MG/5 ML, 10ML UDC PO SCH (10:21)
[2020-06-24] MEDS: POTASSIUM CHLORIDE 20 MEQ PACKET PO SCH ×2 (10:22→17:35)
[2020-06-24] MEDS: FUROSEMIDE 40 MG/4 ML IV SCH ×2 (10:22→17:35)
[2020-06-24] MEDS: ENOXAPARIN 80 MG/0.8 ML SQ SCH (10:22)
--- NOTE | 2020-06-24 11:27 | NUR ---
Vital AF: goal: 40 ml/hr on propofol, 50 ml/hr off propofol Addendum: 06/24/20 at [address] Amended: Links added.
[2020-06-24] MEDS: ARTIFICIAL TEARS 15 DROP/ML BOTTLE RIGHTEYE PRN (20:17)
[2020-06-25] MEDS: PROPOFOL 100 ML IV PRN (03:04)
[2020-06-25] MEDS: INSULIN LISPRO 100 UNITS/ML, PEN SQ-INSULIN SCH (03:04)
[2020-06-25 04:58] LABS: BASOPHILS % (AUTO) 0 % (0-1); EOSINOPHILS % (AUTO) 0 % (1-7); LYMPHOCYTES % (AUTO) 2 % (22-44); MEAN CORPUSCULAR HEMOGLOBIN 30.1 pg (27.5-34.5); MEAN CORPUSCULAR HGB CONC 32.9 g/dL (33.2-36.2); MEAN PLATELET VOLUME 8.5 fL (7.4-10.4); MONOCYTES % (AUTO) 5 % (2-9); NEUTROPHILS % (AUTO) 92 % (42-75); PLATELET COUNT 239 x10^3/uL (130-400); RED BLOOD COUNT 3.98 x10^6/uL (4.38-5.82); RED CELL DISTRIBUTION WIDTH 13.8 % (9.4-14.8)
[2020-06-25 04:59] LABS: CALCIUM 7.3 mg/dL (8.5-10.1); CHLORIDE 105 mmol/L (98-107)
[2020-06-25 05:05] LABS: ALANINE AMINOTRANSFERASE 18 U/L (12-78); ALBUMIN 1.4 g/dL (3.4-5.0); ALKALINE PHOSPHATASE 107 U/L (45-117); ANION GAP 4 mmol/L (5-15); BILIRUBIN, DIRECT 0.3 mg/dL (0.1-0.2); BILIRUBIN,INDIRECT 0.3 mg/dL (0.0-2.0); BILIRUBIN,TOTAL 0.6 mg/dL (0.2-1.0); CREATININE 1.75 mg/dL (0.7-1.3); TOTAL PROTEIN 6.5 g/dL (6.4-8.2); TRIGLYCERIDES 354 mg/dL (50-200)
[2020-06-25] MEDS: VANCOMYCIN 1,200 MG in SODIUM CHLORIDE 0.9% 250 ML IV SCH (05:35)
[2020-06-25] MEDS: AMIODARONE 450 MG in DEXTROSE 5% 241 ML IV PRN (05:36)
[2020-06-25] MEDS: TOBRAMYCIN/DEXAMETH OPHTH SUSP 2.5ML OP SCH (05:36)
[2020-06-25 06:08] LABS: MD SCAN
[2020-06-25] MEDS ORDERED: CODE BLUE RESPONSE XX ONE (07:42)
[2020-06-25] MEDS ORDERED: AMIODARONE 50 MG/ML, 3ML ONE (07:42)
[2020-06-25] MEDS ORDERED: EPINEPHRINE SYRINGE 0.1 MG/ML, 10ML ONE ×2 (07:42→11:23)
== END 2020-06-25 14:07 | disposition expired | DRG 870 ==
LOC: ED 21:25 → EDIP 22:24 → ICU 06-10 00:06
PROVIDERS: ADMIT Family Medicine; ATTEND Internal Medicine
PROC: 5A09457 Assistance with Respiratory Ventilation, 24-96 Consecutive Hours, Continuous Positive Airway Pressure (ICD-10-PCS; 2020-06-09)
PROC: 03HY32Z Insertion of Monitoring Device into Upper Artery, Percutaneous Approach (ICD-10-PCS; principal; 2020-06-10)
PROC: 0BH17EZ Insertion of Endotracheal Airway into Trachea, Via Natural or Artificial Opening (ICD-10-PCS; 2020-06-10)
PROC: 5A1955Z Respiratory Ventilation, Greater than 96 Consecutive Hours (ICD-10-PCS; 2020-06-10)
PROC: XW033E5 Introduction of Remdesivir Anti-infective into Peripheral Vein, Percutaneous Approach, New Technology Group 5 (ICD-10-PCS; 2020-06-10)
DX: A41.89 Other specified sepsis (principal); U07.1 COVID-19; J12.89 Other viral pneumonia; J15.212 Pneumonia due to Methicillin resistant Staphylococcus aureus; J80 Acute respiratory distress syndrome; E87.1 Hypo-osmolality and hyponatremia; I47.1 Supraventricular tachycardia; I47.2 Ventricular tachycardia; Z99.11 Dependence on respirator [ventilator] status; E11.65 Type 2 diabetes mellitus with hyperglycemia; E78.5 Hyperlipidemia, unspecified; E88.09 Other disorders of plasma-protein metabolism, not elsewhere classified; I10 Essential (primary) hypertension; S05.01XA Injury of conjunctiva and corneal abrasion without foreign body, right eye, initial encounter; X58.XXXA Exposure to other specified factors, initial encounter; Y93.89 Activity, other specified; Z79.4 Long term (current) use of insulin; Z82.49 Family history of ischemic heart disease and other diseases of the circulatory system; Y92.89 Other specified places as the place of occurrence of the external cause; Y99.8 Other external cause status
CPT/HCPCS: 36415; 36600; 71045; 80048; 80053; 80076; 80202; 82728; 82803; 82962; 83036; 83605; 83615; 83735; 84145; 84478; 84484; 85025; 85049; 85379; 85384; 85610; 85730; 86140; 87040; 87070; 87077; 87081; 87086; 87147; 87186; 87205; 92950; 93005; 94002; 94003; 94660; 99291; G0378; J0456; J0696; J1100; J1650; J1940; J2250; J2704; J3010; J3370; J7030; J7060; C9113; J0282; J1815; J2060; J7050